=== PATIENT | male | born 1960 | race Two or more races ===

== ENCOUNTER 2023-08-30 13:08 | Emergency (ER) | payer MEDICAID ==
[~2023-08-30] VITALS: Ht 177.8 cm; Wt 113.5 kg
[2023-08-30] MEDS ORDERED: SODIUM BICARB 8.4% 50Meq/50ml SYR INJ IV ONE (13:09)
== END 2023-08-30 13:29 ==
LOC: ER 13:08 → EDBD 13:08 → ER 13:29
DX: I46.9 Cardiac arrest, cause unspecified (principal); E11.9 Type 2 diabetes mellitus without complications
CPT/HCPCS: 31500; 99285; J0171